=== PATIENT | male | born 1960 | race African-American/Black ===

== ENCOUNTER 2016-12-12 21:58 | Inpatient (IN) | payer MEDICAID, OTHER ==
[~2016-12-12] VITALS: Ht 172.7 cm; Wt 60.1 kg
[2016-12-12] MEDS ORDERED: SODIUM CHLORIDE 0.9% 1,000 ML IV ONE (21:59)
[2016-12-12] MEDS ORDERED: SODIUM CHLORIDE 0.9% 1,000ML IVBOLUS ONE (22:00)
[2016-12-12] MEDS ORDERED: ONDANSETRON 2MG/ML, 2ML IVPush ONE (22:00)
[2016-12-12 22:19] LABS: HEMATOCRIT 47.7 % (39.2-51.8); HEMOGLOBIN 15.9 g/dL (13.7-18.0); WHITE BLOOD COUNT 6.6 x10^3/uL (3.4-10)
[2016-12-12] MEDS ORDERED: ONDANSETRON 2MG/ML, 2ML ONE (22:19)
[2016-12-12 22:39] LABS: ASPARTATE AMINO TRANSFERASE 19 U/L (15-37); BLOOD UREA NITROGEN 9 mg/dL (7-18)
[2016-12-12 22:45] LABS: ACETAMINOPHEN < 2 mcg/mL (10-30)
[2016-12-12] MEDS ORDERED: LORazepam 2 MG/ML, 1ML IVPush ONE (23:00)
[2016-12-12] MEDS ORDERED: HALOPERIDOL 5 MG/ML IM ONE (23:00)
[2016-12-12] MEDS ORDERED: HALOPERIDOL 5 MG/ML ONE (23:01)
[2016-12-12] MEDS ORDERED: LORazepam 2 MG/ML, 1ML ONE (23:02)
[2016-12-12] MEDS ORDERED: SODIUM CHLORIDE 0.9% 1,000 ML IV SCH (23:28)
[2016-12-12] MEDS ORDERED: ONDANSETRON 2MG/ML, 2ML IVPush PRN (23:30)
[2016-12-12] MEDS ORDERED: ENOXAPARIN 40 MG/0.4 ML SQ SCH (23:30)
[2016-12-12] MEDS ORDERED: HALOPERIDOL 5 MG/ML IM PRN (23:30)
[2016-12-13 01:14] VITALS: BP 143/92
[2016-12-13 02:35] LABS: ABG COLLECTION SITE LEFT RADIAL; COLLATERAL CIRCULATION TESTING NORMAL; HEMATOCRIT 44.8 % (39.2-51.8); HEMOGLOBIN 14.9 g/dL (13.7-18.0); WHITE BLOOD COUNT 6.8 x10^3/uL (3.4-10)
[2016-12-13 02:38] VITALS: BP 134/81
[2016-12-13 02:44] LABS: ASPARTATE AMINO TRANSFERASE 21 U/L (15-37); BLOOD UREA NITROGEN 8 mg/dL (7-18)
[2016-12-13] MEDS ORDERED: MAGNESIUM SULFATE PMX 2GM/50ML 50 ML IV ONE (03:00)
[2016-12-13] MEDS: D5%-0.45NACL+KCL 20MEQ 1,000 ML IV SCH ×4 (03:17→23:00)
[2016-12-13 08:05] VITALS: BP 163/62
[2016-12-13 10:57] LABS: DAU SCREEN DISCLAIMER
[2016-12-13 13:52] VITALS: BP 162/93
[2016-12-13 21:55] VITALS: BP 148/89
[2016-12-13] MEDS: TAMSULOSIN 0.4 MG CAP.ER.24H PO SCH ×2 (23:40→23:45)
[2016-12-14 03:25] VITALS: BP 140/90
[2016-12-14] MEDS: D5%-0.45NACL+KCL 20MEQ 1,000 ML IV SCH ×3 (03:34→19:00)
[2016-12-14 05:39] LABS: HEMATOCRIT 45.8 % (39.2-51.8); HEMOGLOBIN 15.5 g/dL (13.7-18.0); WHITE BLOOD COUNT 5.6 x10^3/uL (3.4-10)
[2016-12-14] MEDS ORDERED: ENOXAPARIN 30 MG/0.3 ML SQ SCH (06:00)
[2016-12-14 06:02] LABS: BLOOD UREA NITROGEN 8 mg/dL (7-18)
[2016-12-14 07:07] VITALS: BP 175/89
[2016-12-14 14:03] VITALS: BP 133/58
[2016-12-14] MEDS: ACETAMINOPHEN 325 MG TABLET PO PRN (17:27)
[2016-12-14] MEDS: TAMSULOSIN 0.4 MG CAP.ER.24H PO SCH (18:55)
[2016-12-14 20:41] VITALS: BP 128/72
[2016-12-15] MEDS: ACETAMINOPHEN 325 MG TABLET PO PRN (00:13)
[2016-12-15] MEDS: D5%-0.45NACL+KCL 20MEQ 1,000 ML IV SCH ×5 (01:40→21:29)
[2016-12-15 03:40] VITALS: BP 118/79
[2016-12-15] MEDS: LORazepam 2 MG/ML, 1ML IVPush PRN ×2 (06:18→13:23)
[2016-12-15] MEDS: ENOXAPARIN 40 MG/0.4 ML SQ SCH (06:22)
[2016-12-15 07:07] VITALS: BP 162/112
[2016-12-15 08:50] VITALS: BP 159/110
[2016-12-15] MEDS: ENALAPRILAT 1.25 MG/ML, 2ML IVPush PRN (09:04)
[2016-12-15 09:35] VITALS: BP 146/111
[2016-12-15 16:33] VITALS: BP 160/109
[2016-12-15 19:37] VITALS: BP 148/90
[2016-12-16] MEDS: LORazepam 2 MG/ML, 1ML IVPush PRN ×3 (02:54→23:20)
[2016-12-16 03:04] VITALS: BP 166/106
[2016-12-16] MEDS: ENALAPRILAT 1.25 MG/ML, 2ML IVPush PRN ×2 (03:05→03:32)
[2016-12-16 04:10] VITALS: BP 147/98
[2016-12-16] MEDS: D5%-0.45NACL+KCL 20MEQ 1,000 ML IV SCH ×2 (04:13→12:49)
[2016-12-16] MEDS: ENOXAPARIN 40 MG/0.4 ML SQ SCH (06:07)
[2016-12-16 07:55] VITALS: BP 173/99
[2016-12-16 09:00] VITALS: BP 168/94
[2016-12-16] MEDS: TAMSULOSIN 0.4 MG CAP.ER.24H PO SCH (09:26)
[2016-12-16] MEDS: ASPIRIN 325 MG TABLET PO SCH (09:26)
[2016-12-16] MEDS ORDERED: GADOBUTROL 10 MMOL/10 ML VIAL ONE (12:47)
[2016-12-16 14:00] VITALS: BP 152/76
[2016-12-16 19:16] VITALS: BP 168/99
[2016-12-16] MEDS: ACETAMINOPHEN 325 MG TABLET PO PRN (23:20)
[2016-12-17 00:53] VITALS: BP 147/101
[2016-12-17] MEDS: ENALAPRILAT 1.25 MG/ML, 2ML IVPush PRN (01:10)
[2016-12-17 01:25] VITALS: BP 152/92
[2016-12-17] MEDS: ASPIRIN 325 MG TABLET PO SCH (05:59)
[2016-12-17] MEDS: ENOXAPARIN 40 MG/0.4 ML SQ SCH (05:59)
[2016-12-17 08:02] VITALS: BP 160/104
[2016-12-17] MEDS: LORazepam 2 MG/ML, 1ML IVPush PRN ×2 (08:35→21:47)
[2016-12-17] MEDS: TAMSULOSIN 0.4 MG CAP.ER.24H PO SCH (08:35)
[2016-12-17 12:51] VITALS: BP 145/90
[2016-12-17] MEDS ORDERED: OMNIPAQUE 350 MG/ML, 100ML BOTTLE ONE (14:31)
[2016-12-17] MEDS: LISINOPRIL 10 MG TABLET PO SCH (15:47)
[2016-12-17 19:52] VITALS: BP 154/102
[2016-12-17] MEDS: ACETAMINOPHEN 325 MG TABLET PO PRN (21:43)
[2016-12-18 00:55] VITALS: BP 158/100
[2016-12-18] MEDS: ENOXAPARIN 40 MG/0.4 ML SQ SCH (06:17)
[2016-12-18 08:31] VITALS: BP 145/103
[2016-12-18] MEDS: CLOPIDOGREL 75 MG TABLET PO SCH (08:48)
[2016-12-18] MEDS: LISINOPRIL 10 MG TABLET PO SCH ×2 (08:48→20:08)
[2016-12-18] MEDS: TAMSULOSIN 0.4 MG CAP.ER.24H PO SCH (08:48)
[2016-12-18] MEDS: LORazepam 2 MG/ML, 1ML IVPush PRN ×2 (08:56→22:19)
[2016-12-18] MEDS: ENALAPRILAT 1.25 MG/ML, 2ML IVPush PRN (08:57)
[2016-12-18] MEDS ORDERED: CLOP75TA PO (10:45)
[2016-12-18] MEDS ORDERED: LISI-167 PO (10:45)
[2016-12-18 13:00] VITALS: BP 124/84
[2016-12-18 20:05] VITALS: BP 128/86
[2016-12-19 01:35] VITALS: BP 144/93
[2016-12-19] MEDS: ENOXAPARIN 40 MG/0.4 ML SQ SCH (05:56)
[2016-12-19 08:05] VITALS: BP 152/96
[2016-12-19] MEDS: CLOPIDOGREL 75 MG TABLET PO SCH (09:12)
[2016-12-19] MEDS: LISINOPRIL 10 MG TABLET PO SCH ×2 (09:12→21:41)
[2016-12-19] MEDS: TAMSULOSIN 0.4 MG CAP.ER.24H PO SCH (09:12)
[2016-12-19 13:51] VITALS: BP 158/94
[2016-12-19 18:51] VITALS: BP 145/88
[2016-12-19 21:34] VITALS: BP 150/89
[2016-12-19] MEDS: LORazepam 2 MG/ML, 1ML IVPush PRN (21:41)
[2016-12-19] MEDS: ACETAMINOPHEN 325 MG TABLET PO PRN (21:50)
[2016-12-20 05:00] VITALS: BP 131/89
[2016-12-20] MEDS: ENOXAPARIN 40 MG/0.4 ML SQ SCH (06:12)
[2016-12-20 07:18] VITALS: BP 135/82
[2016-12-20] MEDS: TAMSULOSIN 0.4 MG CAP.ER.24H PO SCH (10:18)
[2016-12-20] MEDS: CLOPIDOGREL 75 MG TABLET PO SCH (10:18)
[2016-12-20] MEDS: LISINOPRIL 10 MG TABLET PO SCH ×2 (10:18→20:28)
[2016-12-20 13:55] VITALS: BP 135/81
[2016-12-20] MEDS ORDERED: ACETAMINOPHEN 325 MG TABLET PO PRN (15:00)
[2016-12-20] MEDS ORDERED: ENALAPRILAT 1.25 MG/ML, 2ML IVPush PRN (15:00)
[2016-12-20] MEDS ORDERED: ONDANSETRON 2MG/ML, 2ML IVPush PRN (15:00)
[2016-12-20] MEDS ORDERED: HALOPERIDOL 5 MG/ML IM PRN (15:00)
[2016-12-20] MEDS: LORazepam 2 MG/ML, 1ML IVPush PRN (16:31)
[2016-12-20 18:28] VITALS: BP 133/89
[2016-12-21 00:25] VITALS: BP 118/85
[2016-12-21] MEDS: ENOXAPARIN 40 MG/0.4 ML SQ SCH (05:15)
[2016-12-21 09:03] VITALS: BP 125/94
[2016-12-21] MEDS: TAMSULOSIN 0.4 MG CAP.ER.24H PO SCH (09:19)
[2016-12-21] MEDS: CLOPIDOGREL 75 MG TABLET PO SCH (09:19)
[2016-12-21] MEDS: LISINOPRIL 10 MG TABLET PO SCH ×2 (09:20→20:30)
[2016-12-21] MEDS: LORazepam 2 MG/ML, 1ML IVPush PRN ×2 (11:29→20:30)
[2016-12-21 14:27] VITALS: BP 144/81
[2016-12-21 18:30] VITALS: BP 128/83
[2016-12-22 05:21] VITALS: BP 117/78
[2016-12-22] MEDS: ENOXAPARIN 40 MG/0.4 ML SQ SCH (05:46)
[2016-12-22 07:50] VITALS: BP 128/87
[2016-12-22] MEDS: CLOPIDOGREL 75 MG TABLET PO SCH (08:42)
[2016-12-22] MEDS: TAMSULOSIN 0.4 MG CAP.ER.24H PO SCH (08:42)
[2016-12-22] MEDS: LISINOPRIL 10 MG TABLET PO SCH (08:42)
[2016-12-22 13:39] VITALS: BP 146/93
[2016-12-22] MEDS: LORazepam 2 MG/ML, 1ML IVPush PRN (14:41)
== END 2016-12-22 18:00 | DRG 64 ==
LOC: ED 23:04 → EDIP 23:18 → EDBD 23:18 → 4NOR 12-13 00:40 → 4EST 12-15 13:52 → 4WST 12-20 20:46
PROVIDERS: ADMIT Internal Medicine; ATTEND Internal Medicine
DX: I63.9 Cerebral infarction, unspecified (principal); G93.41 Metabolic encephalopathy; Q21.1 Atrial septal defect; E16.2 Hypoglycemia, unspecified; E86.0 Dehydration; I70.8 Atherosclerosis of other arteries; R33.9 Retention of urine, unspecified; Z82.3 Family history of stroke; Z91.81 History of falling
CPT/HCPCS: 36415; 36600; 70450; 70544; 70549; 70551; 71010; 71275; 72170; 80048; 80053; 80061; 80307; 80329; 81001; 82140; 82550; 82803; 82962; 83735; 85025; 87086; 93005; 93306; 93880; 96361; 96372; 96374; 96375; A9585; J1650; J2405; Q9967; 92523-GN; G0480; J1630; J2060; J3475; J3480; J7030